=== PATIENT | female | born 1950 | race Caucasian/White ===

== ENCOUNTER 2021-08-12 23:49 | Inpatient (IN) | payer OTHER ==
[~2021-08-12] VITALS: Ht 154.9 cm; Wt 73.0 kg
[2021-08-13 01:08] LABS: Basophils # (auto) 0 10 ^3/uL (0-0.2); Basophils % (auto) 0.2 % (0.0-2.0); Eosinophils # (auto) 0.1 10 ^3/uL (0-0.8); Hematocrit 39.6 % (36.0-46.0); Lymphocytes % (auto) 16.1 % (10.0-50.0); Mean Corpuscular Hgb Conc. 32.9 g/dL (32.0-36.0); Mean Corpuscular Volume 94.3 fL (80.0-100.0); Monocytes # (auto) 0.7 10 ^3/uL (0-1.3); Monocytes % (auto) 5.7 % (0.0-12.0); Neutrophils # (auto) 9.8 10 ^3/uL (1.6-8.6); Red Cell Distribution Width 13.5 % (11.8-14.3); White Blood Cell 12.7 10^3/uL (4.4-10.8)
[2021-08-13 01:13] LABS: Albumin 3.3 g/dL (3.4-5.0); Calcium 8.6 mg/dL (8.5-10.1); Potassium 4.3 mmol/L (3.5-5.1)
[2021-08-13 01:18] LABS: BUN/Creatinine Ratio 23.6; Bilirubin, Total 0.1 mg/dL (0.2-1.0)
[2021-08-13 07:14] LABS: Alcohol, Urine < 3.0 mg/dL (0-10); Amphetamine Screen, Urine NEGATIVE (NEGATIVE); Cannabinoid Screen, Urine NEGATIVE (NEGATIVE)
[2021-08-13 07:16] LABS: Barbiturate Scree,Urine NEGATIVE (NEGATIVE); Benzodiazephine Screen, Urine NEGATIVE (NEGATIVE); Cocaine Screen, Urine NEGATIVE (NEGATIVE); Opiate Scree,Urine POSITIVE (NEGATIVE); Phencyclidine Screen, Urine NEGATIVE (NEGATIVE)
[2021-08-13 07:38] LABS: Urine Bacteria FEW /hpf (None Seen); Urine Blood Negative /uL (Negative); Urine Specific Gravity 1.005 (1.001-1.035); Urine WBC <1 /hpf (0 - 5)
[2021-08-13] MEDS ORDERED: ASPirin 81 mg TAB PO ONE ×2 (10:00→20:30)
[2021-08-13] MEDS ORDERED: HYDROmorphone HCL 2 MG/ML VL IV ONE ×3 (12:15→20:00)
[2021-08-13] MEDS ORDERED: HYDROmorphone HCL 2 MG/ML VL ONE (14:49)
[2021-08-13] MEDS ORDERED: DULO20CA PO (17:03)
[2021-08-13] MEDS ORDERED: LOS25T PO (17:03)
[2021-08-13] MEDS ORDERED: LEVO100T8 PO (17:03)
[2021-08-13] MEDS ORDERED: METF-370 PO (17:03)
[2021-08-13] MEDS ORDERED: TOPI25TA84 PO (17:03)
[2021-08-13] MEDS ORDERED: ROPI0.5T32 PO (17:03)
[2021-08-13] MEDS ORDERED: BACL20TA PO (17:03)
[2021-08-13] MEDS ORDERED: HYDR-4072 PO (17:03)
[2021-08-13] MEDS ORDERED: GABA300C10 PO (17:03)
[2021-08-13] MEDS ORDERED: HYDROcodone-ACET 5/325MG TAB PO PRN (20:30)
[2021-08-13] MEDS ORDERED: ACETAMINOPHEN 325 MG TAB PO PRN (20:30)
[2021-08-13] MEDS ORDERED: NITROGLYCERIN 0.4 MG SL TAB SL PRN (20:30)
[2021-08-13] MEDS ORDERED: ATORVASTATIN 20 MG TAB PO ONE (20:30)
[2021-08-13] MEDS ORDERED: DEXTROSE (50%) 50ML SYRG IV PRN (20:30)
[2021-08-13] MEDS ORDERED: LORazepam 0.5 MG TAB PO PRN (20:30)
[2021-08-13] MEDS ORDERED: METOCLOPRAMIDE HCL 5MG/ml INJ 2ml VIAL IV PRN ×2 (20:30→20:45)
[2021-08-13] MEDS ORDERED: MORPHINE SULFATE INJECTION 2 MG/ML SYRG IV PRN ×2 (20:30)
[2021-08-13 22:00] VITALS: BP 136/82
[2021-08-13] MEDS ORDERED: InsuLIN REG 1unit/0.01ml Soln (100units/ml) SC SCH (22:00)
[2021-08-13] MEDS: ACCU-CHEK COMFORT CURVE STRIP VI SCH (22:39)
[2021-08-13] MEDS: SODIUM CHLOR 0.9% PF (SALINE LOCK) 10ML VIAL/SYR IV SCH (22:40)
[2021-08-14 05:00] VITALS: BP 140/78
[2021-08-14 06:23] LABS: Calcium 8.7 mg/dL (8.5-10.1); Magnesium 2.6 mg/dL (1.6-2.6); Potassium 3.8 mmol/L (3.5-5.1)
[2021-08-14] MEDS: ACCU-CHEK COMFORT CURVE STRIP VI SCH ×3 (06:24→18:45)
[2021-08-14] MEDS: SODIUM CHLOR 0.9% PF (SALINE LOCK) 10ML VIAL/SYR IV SCH (06:24)
[2021-08-14] MEDS: InsuLIN REG 1unit/0.01ml Soln (100units/ml) SC SCH ×3 (06:33→17:00)
[2021-08-14 06:34] LABS: Folate (Folic Acid) 8.39 ng/mL (5.38-24)
[2021-08-14 06:36] LABS: BUN/Creatinine Ratio 28.3
[2021-08-14 09:00] VITALS: BP 131/90
[2021-08-14] MEDS ORDERED: ERGOCALCIFEROL 50,000 UNIT(1.25MG) CAP PO SCH (10:00)
[2021-08-14] MEDS ORDERED: CYANOCOBALAMIN (B-12) 1000 MCG/1 ML VIAL IM ONE (10:00)
[2021-08-14 10:35] LABS: INR 1.04 (0.9-1.15)
[2021-08-14 12:51] VITALS: BP 138/72
[2021-08-14] MEDS ORDERED: IODIXANOL 320MG/ML 100ML BTL IV ONE (12:51)
[2021-08-14] MEDS ORDERED: HEPARIN IN NS 1000Units/500mL 0 ML ONE (12:51)
[2021-08-14] MEDS ORDERED: LIDOCAINE 2%HCL (LOCAL ANESTH.) INJ 20ML MDV ONE (12:51)
[2021-08-14] MEDS ORDERED: VERAPAMIL 2.5MG/ML INJ 2ML VIAL IV ONE (12:58)
[2021-08-14] MEDS ORDERED: fentaNYL CITRATE 100 MCG/2 ML VL ONE (12:58)
[2021-08-14] MEDS ORDERED: SODIUM CHL 0.9% 0 ML ONE (12:58)
[2021-08-14] MEDS ORDERED: HEPARIN SODIUM (PORCINE) 5000 UNITS/ML 1ML VIAL ONE (12:58)
[2021-08-14] MEDS ORDERED: ANGIOMAX 250 MG VIAL IV ONE (12:58)
[2021-08-14] MEDS ORDERED: MIDAZOLAM HCL 2MG/2ML 2ml VIAL (1mg/ml) ONE (12:58)
[2021-08-14 15:10] VITALS: BP 130/75
[2021-08-14 16:10] VITALS: BP 132/78
[2021-08-14 17:00] VITALS: BP 133/77
[2021-08-14] MEDS ORDERED: SODIUM CHLOR 0.9% PF (SALINE LOCK) 10ML VIAL/SYR IV SCH (22:00)
[2021-08-15] MEDS ORDERED: CYANOCOBALAMIN (B-12) 1000 MCG/1 ML VIAL IM SCH (10:00)
== END 2021-08-14 18:55 | disposition home or self-care (01) | DRG 286 ==
LOC: ER 23:49 → EDBD 23:49 → EEVIPCON 08-13 20:26 → TELE-CENTR 08-13 20:26
PROVIDERS: ADMIT Internal Medicine; ATTEND Internal Medicine
PROC: 4A023N7 Measurement of Cardiac Sampling and Pressure, Left Heart, Percutaneous Approach (ICD-10-PCS; principal; 2021-08-14)
PROC: B211YZZ Fluoroscopy of Multiple Coronary Arteries using Other Contrast (ICD-10-PCS; 2021-08-14)
PROC: B215YZZ Fluoroscopy of Left Heart using Other Contrast (ICD-10-PCS; 2021-08-14)
DX: I25.10 Atherosclerotic heart disease of native coronary artery without angina pectoris (principal); G92.9 Unspecified toxic encephalopathy; E55.9 Vitamin D deficiency, unspecified; E78.5 Hyperlipidemia, unspecified; F17.210 Nicotine dependence, cigarettes, uncomplicated; E11.9 Type 2 diabetes mellitus without complications; I10 Essential (primary) hypertension; Z20.822 Contact with and (suspected) exposure to COVID-19; F41.9 Anxiety disorder, unspecified; G89.29 Other chronic pain; Z71.6 Tobacco abuse counseling
CPT/HCPCS: 36415; 70450; 71045; 71250; 73030; 74176; 80048; 80053; 80307; 81001; 82306; 82607; 82746; 82962; 83036; 83605; 83735; 83880; 84443; 84484; 85025; 85610; 87426; 93005; 93306; 93458; 93886; 96374; 96376; 99152; G0378; J1815; J2250; Q9967